=== PATIENT | male | born 1970 | race Caucasian/White ===

== ENCOUNTER 2023-01-27 17:22 | Observation (INO) | payer OTHER ==
[2023-01-27] MEDS ORDERED: SODIUM CHLORIDE 0.9% 1,000 ML IV STA (17:53)
[2023-01-27] MEDS ORDERED: HYDROmorphone 0.5 MG/0.5 ML SYRINGE IVP STA ×2 (18:07→18:52)
[2023-01-27 18:42] LABS: HCT 46.2 % (39.0-53.0); HGB 15.4 gm/dL (13.0-17.5); MCH 29.9 pg (25.0-35.0); MCHC 33.4 g/dL (31.0-37.0); MCV 89.4 fL (80.0-100.0); Mean Platelet Volume 7.8; Platelet Count 307 k/uL (150-450); RBC 5.17 m/uL (4.30-5.90); WBC 8.6 k/uL (3.8-10.6)
[2023-01-27 18:51] LABS: Appearance,Urine Clear (Clear); Bilirubin,Urine Negative (Negative); Blood,Urine Negative (Negative); Color,Urine Light Yellow; Glucose,Urine (UA) Negative (Negative); Ketones,Urine Negative (Negative); Leukocyte Esterase,Urine Negative (Negative); Nitrite,Urine Negative (Negative); Protein,Urine Negative (Negative); Specific Gravity,Urine 1.005 (1.001-1.035); Urobilinogen,Urine <2.0 mg/dL (<2.0)
[2023-01-27 18:51] LABS: ALT 22 U/L (4-49); AST 27 U/L (17-59); African American GFR (CKD) >90 (>60 ml/min/1.73 sqM); Albumin 4.6 g/dL (3.5-5.0); Alkaline Phosphatase 107 U/L (38-126); Anion Gap 9 mmol/L; Blood Urea Nitrogen 7 mg/dL (9-20); Calcium 9.2 mg/dL (8.4-10.2); Carbon Dioxide 26 mmol/L (22-30); Chloride 106 mmol/L (98-107); Glucose 92 mg/dL (74-99); Lipase 42 U/L (23-300); Non-African American GFR(CKD) >90 (>60 ml/min/1.73 sqM); Sodium 141 mmol/L (137-145); Total Bilirubin 0.5 mg/dL (0.2-1.3); Total Protein 7.6 g/dL (6.3-8.2)
[2023-01-27 19:19] LABS: Eosinophils # (M) 0.09 k/uL (0-0.7); Lymphocytes # (M) 3.53 k/uL (1.0-4.8); Monocytes # (M) 0.52 k/uL (0-1.0); Neutrophils # (M) 4.47 k/uL (1.3-7.7); Neutrophils % (M) 52 %; Nucleated Red Blood Cells 0 /100 WBC (0-0); Total Cells Counted 100
[2023-01-27 19:20] LABS: RBC Morphology Normal
--- NOTE | 2023-01-27 19:36 | CT ---
EXAMINATION TYPE: CT abdomen pelvis w con CT DLP: 728.8 mGycm, Automated exposure control for dose reduction was used. DATE OF EXAM: 01/27/2023 7:12 PM COMPARISON: None CLINICAL INDICATION:Male, 52 years old with history of RLQ pain; RLQ pain TECHNIQUE: Standard CT of the abdomen and pelvis following the administration of 100 cc of Isovue 3 00 IV contrast material. Coronal and sagittal reformats were performed. FINDINGS: LOWER CHEST: Bilateral lower lobe subsegmental patchy airspace opacities. ABDOMEN LIVER: Unremarkable GALLBLADDER AND BILE DUCTS: Unremarkable. PANCREAS: Unremarkable. SPLEEN: Unremarkable. ADRENAL GLANDS: Unremarkable. KIDNEYS AND URETERS: No evidence of hydronephrosis. Nonobstructive right renal calculi measuring up t o 2 mm. The kidneys enhance symmetrically. Contrast is demonstrated within both collecting systems on the delayed phase. Subcentimeter right renal hypodense focus which is too small to characterize but likely represents a cyst. PELVIS BLADDER: Unremarkable REPRODUCTIVE: Unremarkable. ABDOMEN & PELVIS STOMACH AND BOWEL: Stomach and duodenum are unremarkable. There is some long segment wall thickening involving the under distended sigmoid colon and rectum. The appendix is within normal limits. No dive rticulosis identified. No evidence of bowel obstruction. PERITONEUM: No evidence of pneumoperitoneum or free fluid. VASCULATURE: Mild atherosclerotic calcifications are present throughout the abdominal aorta and its b ranches. No evidence of aortic aneurysm. MUSCULOSKELETAL: No acute osseous abnormalities LYMPH NODES: No gross evidence for lymphadenopathy. SOFT TISSUE/ABDOMINAL WALL: Unremarkable IMPRESSION: 1. Circumferential wall thickening of the sigmoid colon and rectum which may relate to underdistenti on versus proctocolitis. The appendix is within normal limits. 2. Nonobstructive right renal calculi. 3. Bilateral lower lobe subsegmental airspace opacities which are favored to represent atelectasis ve rsus less likely infiltrates.
[2023-01-27] MEDS ORDERED: NALOXONE 0.4 MG/ML 1 ML VIAL IV PRN (20:52)
[2023-01-27] MEDS ORDERED: ACETAMINOPHEN TAB 325 MG TAB PO PRN (20:53)
[2023-01-27] MEDS: KETOROLAC 15 MG/ML 1 ML VIAL IVP PRN (21:38)
[2023-01-27] MEDS: SODIUM CHLORIDE 0.9% 1,000 ML IV SCH (21:39)
--- NOTE | 2023-01-27 22:03 | ED ---
Abdominal Pain HPI - General Chief Complaint: Abdominal Pain Stated Complaint: abd pain Time Seen by Provider: 01/27/23 17:53 Source: patient Mode of arrival: ambulatory Limitations: no limitations - History of Present Illness Initial Comments: Patient is a 52-year-old male who presents to the emergency department with a chief complaint of abdominal pain. This started yesterday in the right lower abdomen. It radiates into his right side and right back. Patient states today the pain has been significant. He denies fever, chills, nausea, vomiting, diarrhea, constipation, blood in stool, burning urination, trouble urinating, penile discharge, blood in the urine. He denies history of kidney stone. Denies history of abdominal surgery. - Related Data Home Medications Medication Instructions Recorded Confirmed Atorvastatin [Lipitor] 20 mg PO HS 01/27/23 01/27/23 Metoprolol Succinate (ER) [Toprol 25 mg PO HS 01/27/23 01/27/23 Xl] Allergies Allergy/AdvReac Type Severity Reaction Status Date / Time codeine Allergy Rash/Hives Verified 01/27/23 21:06 milk Allergy Unknown Verified 01/27/23 21:07 Review of Systems ROS Statement: Those systems with pertinent positive or pertinent negative responses have been documented in the HPI. ROS Other: All systems not noted in ROS Statement are negative. Past Medical History Past Medical History: Hyperlipidemia, Hypertension History of Any Multi-Drug Resistant Organisms: None Reported Additional Past Surgical History / Comment(s): hemorroid Past Psychological History: No Psychological Hx Reported Smoking Status: Current every day smoker Past Alcohol Use History: None Reported Past Drug Use History: Marijuana General Exam Limitations: no limitations General appearance: alert, in no apparent distress Head exam: Present: atraumatic, normocephalic, normal inspection Eye exam: Present: normal appearance, PERRL, EOMI. Absent: scleral icterus, conjunctival injection, periorbital swelling Respiratory exam: Present: normal lung sounds bilaterally. Absent: respiratory distress, wheezes, rales, rhonchi, stridor Cardiovascular Exam: Present: regular rate, normal rhythm, normal heart sounds. Absent: systolic murmur, diastolic murmur, rubs, gallop, clicks GI/Abdominal exam: Present: soft, tenderness (RLQ moderate ), normal bowel sounds. Absent: distended, guarding, rebound, rigid Back exam: Present: normal inspection. Absent: CVA tenderness (R), CVA tenderness (L), muscle spasm, paraspinal tenderness, vertebral tenderness Psychiatric exam: Present: normal affect, normal mood Skin exam: Present: warm, dry, intact, normal color. Absent: rash Course Vital Signs 01/27/23 01/27/23 17:48 21:40 Temperature 98.3 F Pulse Rate 90 70 Respiratory 20 18 Rate Blood Pressure 164/106 144/98 O2 Sat by Pulse 98 95 Oximetry Medical Decision Making - Medical Decision Making Was pt. sent in by a medical professional or institution (, PA, BOIL OFF WORKER, urgent care, hospital, or [facility]...) When possible be specific @ -No Did you speak to anyone other than the patient for history (EMS, parent, family, police, friend...)? What history was obtained from this source @ -No Did you review nursing and triage notes (agree or disagree)? Why? @ -I reviewed and agree with nursing and triage notes Were old charts reviewed (outside hosp., previous admission, EMS record, old EKG, old radiological studies, urgent care reports/EKG's, [facility] records)? Report findings @ -No old charts were reviewed Differential Diagnosis (chest pain, altered mental status, abdominal pain women, abdominal pain men, vaginal bleeding, weakness, fever, dyspnea, syncope, headache, dizziness, GI bleed, back pain, seizure, CVA, palpatations, mental health)? @ -Differential Abdominal Pain Women: Appendicitis, Cholecystitis, diverticulosis, ischemic bowel, pancreatitis, hepatitis, UTI, gastroenteritis, AAA, incarcerated hernia, bowel obstruction, constipation, inflammatory bowel, hepatitis, peptic ulcer disease, splenic infarction, perforated viscus, vulvitis, ovarian torsion, PID, kidney stone, placenta abruption, this is not meant to be an all-inclusive list EKG interpreted by me (3pts min.). @ -As above X-rays interpreted by me (1pt min.). @ -None done CT interpreted by me (1pt min.). @ -Yes, CT of the abdomen and pelvis with contrast shows circumferential wall thickening of the sigmoid colon and rectum which may relate to under distention versus proctocolitis. The appendix is within normal limits U/S interpreted by me (1pt. min.). @ -None done What testing was considered but not performed or refused? (CT, X-rays, U/S, labs)? Why? @ -None] What meds were considered but not given or refused? Why? @ -[None] Did you discuss the management of the patient with other professionals (professionals i.e. , PA, BOIL OFF WORKER, lab, RT, psych nurse, social media assistant, master printer, teacher, chairman & chief executive officer, continuous pillowcase cutter)? Give summary @ -[No] Was smoking cessation discussed for >3mins.? @ -[No] Was critical care preformed (if so, how long)? @ -[No] Were there social determinants of health that impacted care today? How? (Homelessness, low income, unemployed, alcoholism, drug addiction, transportation, low edu. Level, literacy, decrease access to med. care, half-way, rehab)? @ -[No] Was there de-escalation of care discussed even if they declined (Discuss DNR or withdrawal of care, Hospice)? DNR status @ -[No] What co-morbidities impacted this encounter? (DM, HTN, Smoking, COPD, CAD, Cancer, CVA, ARF, Chemo, Hep., AIDS, mental health diagnosis, sleep apnea, morbid obesity)? @ -[None] Was patient admitted / discharged? Hospital course, mention meds given and route, prescriptions, significant lab abnormalities, going to OR and other pertinent info. @ -Patient presenting with right lower quadrant pain. The abdomen is soft with moderate tenderness in the right lower quadrant. Labs are unremarkable. CT of the abdomen and pelvis with contrast interpreted by myself/radiology showing circumferential wall thickening of the sigmoid colon and rectum possibly reflecting prostocolitis. Patient to female he denies any sexual intercourse with men. Patient continues to have pain despite pain medication he is not comfortable going home. Case discussed with Dr. Ahumada who will keep patient for observation. General surgery is consulted. Undiagnosed new problem with uncertain prognosis? @ -[No] Drug Therapy requiring intensive monitoring for toxicity (Heparin, Nitro, Insulin, Cardizem)? @ -[No] Were any procedures done? @ -[No] Diagnosis/symptom? @ -RLQ abdominal pain Acute, or Chronic, or Acute on Chronic? @ -acute Uncomplicated (without systemic symptoms) or Complicated (systemic symptoms)? @ -uncomplicated Side effects of treatment? @ -[No] Exacerbation, Progression, or Severe Exacerbation? @ -[No] Poses a threat to life or bodily function? How? (Chest pain, [place], [place], pneumonia, PE, COPD, DKA, ARF, appy, cholecystitis, CVA, Diverticulitis, Homicidal, Suicidal, threat to staff... and all critical care pts) @ -No Dr. Kaba is my attending - Lab Data Result diagrams: 01/27/23 18:25 01/27/23 18:25 Lab Results 01/27/23 01/27/23 01/27/23 Range/Units 18:19 18:25 18:25 WBC 8.6 (3.8-10.6) k/uL RBC 5.17 (4.30-5.90) m/uL Hgb 15.4 (13.0-17.5) gm/dL Hct 46.2 (39.0-53.0) % MCV 89.4 (80.0-100.0) fL MCH 29.9 (25.0-35.0) pg MCHC 33.4 (31.0-37.0) g/dL RDW 13.0 (11.5-15.5) % Plt Count 307 (150-450) k/uL MPV 7.8 Neutrophils % Not Reportable Neutrophils % (Manual) 52 % Lymphocytes % Not Reportable Lymphocytes % (Manual) 41 % Monocytes % Not Reportable Monocytes % (Manual) 6 % Eosinophils % Not Reportable Eosinophils % (Manual) 1 % Basophils % Not Reportable Neutrophils # Not Reportable Neutrophils # (Manual) 4.47 (1.3-7.7) k/uL Lymphocytes # Not Reportable Lymphocytes # (Manual) 3.53 (1.0-4.8) k/uL Monocytes # Not Reportable Monocytes # (Manual) 0.52 (0-1.0) k/uL Eosinophils # Not Reportable Eosinophils # (Manual) 0.09 (0-0.7) k/uL Basophils # Not Reportable Nucleated RBCs 0 (0-0) /100 WBC Manual Slide Review Performed RBC Morphology Normal Sodium 141 (137-145) mmol/L Potassium 4.0 (3.5-5.1) mmol/L Chloride 106 (98-107) mmol/L Carbon Dioxide 26 (22-30) mmol/L Anion Gap 9 mmol/L BUN 7 L (9-20) mg/dL Creatinine 0.66 (0.66-1.25) mg/dL Est GFR (CKD-EPI)AfAm >90 (>60 ml/min/1.73 sqM) Est GFR (CKD-EPI)NonAf >90 (>60 ml/min/1.73 sqM) Glucose 92 (74-99) mg/dL Plasma Lactic Acid John (0.7-2.0) mmol/L Calcium 9.2 (8.4-10.2) mg/dL Total Bilirubin 0.5 (0.2-1.3) mg/dL AST 27 (17-59) U/L ALT 22 (4-49) U/L Alkaline Phosphatase 107 (38-126) U/L Total Protein 7.6 (6.3-8.2) g/dL Albumin 4.6 (3.5-5.0) g/dL Lipase 42 (23-300) U/L Urine Color Light Yellow Urine Appearance Clear (Clear) Urine pH 6.0 (5.0-8.0) Ur Specific [place] 1.005 (1.001-1.035) Urine Protein Negative (Negative) Urine Glucose (UA) Negative (Negative) Urine Ketones Negative (Negative) Urine Blood Negative (Negative) Urine Nitrite Negative (Negative) Urine Bilirubin Negative (Negative) Urine Urobilinogen <2.0 (<2.0) mg/dL Ur Leukocyte Esterase Negative (Negative) 01/27/23 Range/Units 18:25 WBC (3.8-10.6) k/uL RBC (4.30-5.90) m/uL Hgb (13.0-17.5) gm/dL Hct (39.0-53.0) % MCV (80.0-100.0) fL MCH (25.0-35.0) pg MCHC (31.0-37.0) g/dL RDW (11.5-15.5) % Plt Count (150-450) k/uL MPV Neutrophils % Neutrophils % (Manual) % Lymphocytes % Lymphocytes % (Manual) % Monocytes % Monocytes % (Manual) % Eosinophils % Eosinophils % (Manual) % Basophils % Neutrophils # Neutrophils # (Manual) (1.3-7.7) k/uL Lymphocytes # Lymphocytes # (Manual) (1.0-4.8) k/uL Monocytes # Monocytes # (Manual) (0-1.0) k/uL Eosinophils # Eosinophils # (Manual) (0-0.7) k/uL Basophils # Nucleated RBCs (0-0) /100 WBC Manual Slide Review RBC Morphology Sodium (137-145) mmol/L Potassium (3.5-5.1) mmol/L Chloride (98-107) mmol/L Carbon Dioxide (22-30) mmol/L Anion Gap mmol/L BUN (9-20) mg/dL Creatinine (0.66-1.25) mg/dL Est GFR (CKD-EPI)AfAm (>60 ml/min/1.73 sqM) Est GFR (CKD-EPI)NonAf (>60 ml/min/1.73 sqM) Glucose (74-99) mg/dL Plasma Lactic Acid John 1.0 (0.7-2.0) mmol/L Calcium (8.4-10.2) mg/dL Total Bilirubin (0.2-1.3) mg/dL AST (17-59) U/L ALT (4-49) U/L Alkaline Phosphatase (38-126) U/L Total Protein (6.3-8.2) g/dL Albumin (3.5-5.0) g/dL Lipase (23-300) U/L Urine Color Urine Appearance (Clear) Urine pH (5.0-8.0) Ur Specific [place] (1.001-1.035) Urine Protein (Negative) Urine Glucose (UA) (Negative) Urine Ketones (Negative) Urine Blood (Negative) Urine Nitrite (Negative) Urine Bilirubin (Negative) Urine Urobilinogen (<2.0) mg/dL Ur Leukocyte Esterase (Negative) Disposition Clinical Impression: RLQ abdominal pain Disposition: ADMITTED IP TO THIS [facility] Condition: Good Referrals: None,Stated [Primary Care Provider] - 1-2 days
[2023-01-28] MEDS ORDERED: HYDROmorphone 0.5 MG/0.5 ML SYRINGE IVP STA (01:26)
[2023-01-28] MEDS: SODIUM CHLORIDE 0.9% 1,000 ML IV SCH ×2 (09:13→23:16)
[2023-01-28] MEDS ORDERED: HYDROmorphone 1 MG/ML 1 ML SYRINGE IVP PRN (09:18)
[2023-01-28] MEDS: PANTOPRAZOLE 40 MG/10 ML VIAL IVP SCH ×2 (10:09→20:50)
[2023-01-28] MEDS ORDERED: METOPROLOL SUCCINATE (ER) 25 MG TAB.ER.24H PO STA (10:48)
--- NOTE | 2023-01-28 14:41 | P.GSCN ---
History of Present Illness Consult date: 01/28/23 History of present illness: CHIEF COMPLAINT: Abdominal pain HISTORY OF PRESENT ILLNESS: This is a 52-year-old male who presented to the hospital with complaints of right lower quadrant abdominal pain that started 3 days ago. Patient reports that he had been dealing with constipation and took Dulcolax with good results. He reports having normal amount of stool. He denies any nausea or vomiting. Denies any fever chills or sweats. He was initially rating his pain a 10 out of 10. Pain has shown some improvement. He had a computed tomography scan of abdomen and pelvis showing wall thickening in the sigmoid colon and rectum. The appendix was normal. Patient has never had a colonoscopy. He reports no blood in his stools. PAST MEDICAL HISTORY: See list. PAST SURGICAL HISTORY: See list. MEDICATIONS: See list. ALLERGIES: See list. SOCIAL HISTORY: No illicit drug use. REVIEW OF SYSTEMS: CONSTITUTIONAL: Denies fever or chills. HEENT: Denies blurred vision, vision changes, or eye pain. Denies hemoptysis ENDOCRINE: Denies heat or cold intolerance. CARDIOVASCULAR: Denies chest pain or pressure. RESPIRATORY: No shortness of breath. GASTROINTESTINAL: Please refer to HPI NEURO: Denies history of seizures. PSYCH: No depression or suicidal ideation HEMATOLOGIC: Denies bleeding disorders. LYMPHATIC: The patient denies any lumps and bumps around the neck. GENITOURINARY: Denies any blood in urine or increased urinary frequency. MUSCULOSKELETAL: Denies myalgias. Denies joint swelling. Denies decreased range of motion beyond patients baseline. SKIN: Denies pruitis. Denies rash. PHYSICAL EXAM: VITAL SIGNS: Reviewed GENERAL: Well-developed in no acute distress. HEENT: No sclera icterus. Extraocular movements grossly intact. Moist buccal mucosa. Head is atraumatic, normocephalic. Hears conversational speech. No nasal drainage. NECK: Supple without lymphadenopathy. CHEST: Non-labored respirations and equal bilateral excursions. CARDIOVASCULAR: Palpable 2+ radial pulses. ABDOMEN: Soft. Nondistended. Tenderness to palpation right lower quadrant MUSCULOSKELETAL: No clubbing or cyanosis. NEUROLOGIC: No focal or lateralizing signs. Cranial nerves II through XII grossly intact. PSYCH: Appropriate affect. Alert and oriented to person, place and time. SKIN: Well perfused. Good skin turgor. LABORATORY DATA: WBC 8.6 Hgb 15.4 platelets 307 Sodium 141 potassium 4.0 creatinine 0.66 Lactic acid 1.0 LFTs normal lipase 42 Urinalysis negative IMAGING: Computed tomography scan abdomen and pelvis circumferential wall thickening of the sigmoid colon and rectum which may relate to under distention versus proctocolitis. The appendix is within normal limits. Nonobstructive right renal calculi. Bilateral lower lobe subsegmental airspace opacities which are favored to represent atelectasis versus less likely infiltrates ASSESSMENT: 1. Right lower quadrant abdominal pain 2. Circumferential wall thickening of the sigmoid colon and rectum noted on computed tomography scan 3. Nonobstructive right renal calculi 4. Hypertension 5. Hyperlipidemia PLAN: -Advance diet to full liquids -Continue to monitor -Continue pain management -Discussed options about possible Robotic appendectomy if patient's symptoms do not show improvement Thank you for this consultation Physician Quality Control Clerk note has been reviewed by physician. Signing provider agrees with the documented findings, assessment, and plan of care. Past Medical History Past Medical History: Hyperlipidemia, Hypertension History of Any Multi-Drug Resistant Organisms: None Reported Additional Past Surgical History / Comment(s): hemorroid Past Psychological History: No Psychological Hx Reported Smoking Status: Current every day smoker Past Alcohol Use History: None Reported Past Drug Use History: Marijuana Medications and Allergies Home Medications Medication Instructions Recorded Confirmed Type Atorvastatin [Lipitor] 20 mg PO HS 01/27/23 01/27/23 History Metoprolol Succinate (ER) [Toprol 25 mg PO HS 01/27/23 01/27/23 History Xl] Allergies Allergy/AdvReac Type Severity Reaction Status Date / Time codeine Allergy Rash/Hives Verified 01/27/23 21:06 milk Allergy Unknown Verified 01/27/23 21:07 Surgical - Exam Vital Signs Temp Pulse Resp BP Pulse Ox 98.3 F 90 20 164/106 98 01/27/23 17:48 01/27/23 17:48 01/27/23 17:48 01/27/23 17:48 01/27/23 17:48 Results - Labs 01/27/23 18:25 01/27/23 18:25 Abnormal Lab Results - Last 24 Hours (Table) 01/27/23 Range/Units 18:25 BUN 7 L (9-20) mg/dL Diabetes panel 01/27/23 Range/Units 18:25 Sodium 141 (137-145) mmol/L Potassium 4.0 (3.5-5.1) mmol/L Chloride 106 (98-107) mmol/L Carbon Dioxide 26 (22-30) mmol/L BUN 7 L (9-20) mg/dL Creatinine 0.66 (0.66-1.25) mg/dL Glucose 92 (74-99) mg/dL Calcium 9.2 (8.4-10.2) mg/dL AST 27 (17-59) U/L ALT 22 (4-49) U/L Alkaline Phosphatase 107 (38-126) U/L Total Protein 7.6 (6.3-8.2) g/dL Albumin 4.6 (3.5-5.0) g/dL Calcium panel 01/27/23 Range/Units 18:25 Calcium 9.2 (8.4-10.2) mg/dL Albumin 4.6 (3.5-5.0) g/dL Pituitary panel 01/27/23 Range/Units 18:25 Sodium 141 (137-145) mmol/L Potassium 4.0 (3.5-5.1) mmol/L Chloride 106 (98-107) mmol/L Carbon Dioxide 26 (22-30) mmol/L BUN 7 L (9-20) mg/dL Creatinine 0.66 (0.66-1.25) mg/dL Glucose 92 (74-99) mg/dL Calcium 9.2 (8.4-10.2) mg/dL Adrenal panel 01/27/23 Range/Units 18:25 Sodium 141 (137-145) mmol/L Potassium 4.0 (3.5-5.1) mmol/L Chloride 106 (98-107) mmol/L Carbon Dioxide 26 (22-30) mmol/L BUN 7 L (9-20) mg/dL Creatinine 0.66 (0.66-1.25) mg/dL Glucose 92 (74-99) mg/dL Calcium 9.2 (8.4-10.2) mg/dL Total Bilirubin 0.5 (0.2-1.3) mg/dL AST 27 (17-59) U/L ALT 22 (4-49) U/L Alkaline Phosphatase 107 (38-126) U/L Total Protein 7.6 (6.3-8.2) g/dL Albumin 4.6 (3.5-5.0) g/dL
--- NOTE | 2023-01-28 15:41 | P.HPIM ---
History of Present Illness H&P Date: 01/28/23 This is a pleasant 52-year-old male who presented to the emergency department with right lower quadrant pain that he reports started Wednesday into Wednesday and the pain persisted and was radiating around. Patient denies any nausea or vomiting, black or tarry stools, difficulty in urination or pain with urination. Patient reports he did travel down to [place] where he originates from for the and denies any sick contacts or changes in foods. Patient reports he did eat seafood which is not new for him and has no ALLERGIES to this. Patient does not currently have a primary care provider and reports he has a past medical history of high cholesterol and high blood pressure and continues to use tobacco. Patient occasionally uses marijuana and denies any alcohol use. Patient reports he goes to urgent care in [place] for medication refills. Labs reviewed from emergency department and urinalysis was negative, BMP within normal limits lactic acid was 1, lipase is 42, CBC within normal limits. Vital signs relatively stable other than mildly hypertensive and had not had medications in [address] abdomen and pelvis done in the emergency department that showed circumferential wall thickening of the sigmoid colon and rectum which may relate to underdistention versus proctocolitis and the appendix appeared within normal limits, a nonobstructive right renal calculi, and bilateral lower lobes subsegmental airspace opacification is which are favored to represent atelectasis versus less likely infiltrates. Patient was admitted under observation with surgical consult for abdominal pain and started on IV hydration and made nothing by mouth. Review Of Systems: Constitutional: No fever, no chills, no night sweats. No weight change. No weakness, fatigue or lethargy. No daytime sleepiness. EENT: No headache. No blurred vision or double vision, no loss of vision. No loss of Hearing, no ringing in the ears, no dizziness. No nasal drainage or congestion. No epistaxis. No sore throat. Lungs: No shortness of breath, cough, no sputum production. No wheezing. Cardiovascular: No chest pain, no lower extremity edema. No palpitations. No paroxysmal nocturnal dyspnea. No orthopnea. No lightheadedness or dizziness. No syncopal episodes. Abdominal: Reports right lower quadrant abdominal pain. No nausea, vomiting. No diarrhea. No constipation. No bloody or tarry stools.. Reports loss of appetite. Genitourinary: No dysuria, increased frequency, urgency. No urinary retention. Musculoskeletal: No myalgias. No muscle weakness, no gait dysfunction, no frequent falls. No back pain. No neck pain. Integumentary: No wounds, no lesions. No rash or pruritus. No unusual bruising. No change in hair or nails. Neurologic: No aphasia. No facial droop. No change in mentation. No head injury. No headache. No paralysis. No paresthesia. Psychiatric: No depression. No anxiety. No mood swings. Endocrine: No abnormal blood sugars. No weight change. No excessive sweating or thirst. No cold intolerance. PHYSICAL EXAMINATION: GENERAL: The patient is alert and oriented x4, Well developed, well nourished. Thin built HEENT: Pupils are round and equally reacting to light. EOMI. no scleral icterus. No conjunctival pallor. Normocephalic, atraumatic. No pharyngeal erythema. No thyromegaly. CARDIOVASCULAR: S1 and S2 muffled PULMONARY: diminished breath sounds bilaterally with no wheezing or rhonchi noted. ABDOMEN: soft. Extremely tender of the right lower quadrant with palpation on exam. non-distended, normoactive bowel sounds. No palpable organomegaly. MUSCULOSKELETAL: No joint swelling or deformity. EXTREMITIES: No cyanosis, clubbing, or pedal edema. NEUROLOGICAL: Gross neurological examination did not reveal any focal deficits. SKIN: No rashes. Assessment: Abdominal pain, right lower quadrant with concerns of possible proctocolitis Circumferential wall thickening of the sigmoid colon and rectum as noted on CT Right side nonobstructive renal calculi History of hypertension History of hyperlipidemia Continued ongoing nicotine dependence Occasional THC use GI prophylaxis DVT prophylaxis Full code Plan: Recommend to continue with current medications and management and general surgery had been consulted from the ER Patient was nothing by mouth and evaluated by general surgery recommending full liquid diet as patient is reporting hunger Concerns for wall thickening of the sigmoid colon and rectum with concerns of proctocolitis versus distention. Patient reports will occasionally have constipation and uses laxatives for relief Home medications reviewed and resumed Will add empiric antibiotics in the form of ceftriaxone and Flagyl and patient is scheduled tentatively to undergo laparoscopic evaluation with possible robotic appendectomy and will be nothing by mouth at midnight Recommend follow-up labs Given patient's continued symptoms and severity of 10/10 pain, patient will require more than 2 night hospitalization. Will await surgical report. The impression and plan of care has been dictated by Leticia Valencia, nurse practitioner as directed. Dr. Yann MD I have performed a history and examination and MDM of this patient, discussed the same with the dictator, and agree with the dictator's assessment and plan as written ,documented as a scribe. Based on total visit time, I have performed more than 50% of the visit. Any additional findings or plans will be noted. Past Medical History Past Medical History: Hyperlipidemia, Hypertension History of Any Multi-Drug Resistant Organisms: None Reported Additional Past Surgical History / Comment(s): hemorroid Past Psychological History: No Psychological Hx Reported Smoking Status: Current every day smoker Past Alcohol Use History: None Reported Past Drug Use History: Marijuana Medications and Allergies Home Medications Medication Instructions Recorded Confirmed Type Atorvastatin [Lipitor] 20 mg PO HS 01/27/23 01/27/23 History Metoprolol Succinate (ER) [Toprol 25 mg PO HS 01/27/23 01/27/23 History Xl] Allergies Allergy/AdvReac Type Severity Reaction Status Date / Time codeine Allergy Rash/Hives Verified 01/27/23 21:06 milk Allergy Unknown Verified 01/27/23 21:07 Physical Exam Vitals: Vital Signs Temp Pulse Pulse Resp BP BP Pulse Ox 01/28/23 07:00 97.9 F 60 18 143/83 96 01/28/23 00:56 97.8 F 66 14 167/91 98 01/27/23 21:40 70 18 144/98 95 01/27/23 17:48 98.3 F 90 20 164/106 98 Intake and Output 01/27/23 01/28/23 01/28/23 22:59 06:59 14:59 Output Total 0 Balance 0 Output: Urine 0 Other: # Voids 1 Weight 63.503 kg 63.503 kg Results CBC & Chem 7: 01/27/23 18:25 01/27/23 18:25 Labs: Abnormal Lab Results - Last 24 Hours (Table) 01/27/23 Range/Units 18:25 BUN 7 L (9-20) mg/dL Thrombosis Risk Factor Assmnt - DVT/VTE Prophylaxis DVT/VTE Prophylaxis: Mechanical Prophylaxis ordered - Choose All That Apply Any of the Below Risk Factors Present?: Yes Each Factor Represents 1 point: Age 41-60 years Other Risk Factors: No Other congenital or acquired thrombophilia - If yes, enter type in comment: No Thrombosis Risk Factor Assessment Total Risk Factor Score: 1 Thrombosis Risk Factor Assessment Level: Low Risk Assessment and Plan Time with Patient: Greater than 30
[2023-01-28] MEDS: metroNIDAZOLE-NS PMX 500 MG in SALINE 1 100ML.BAG IVPB SCH ×2 (16:21→23:14)
[2023-01-28] MEDS ORDERED: ONDANSETRON 4 MG/2 ML VIAL IVP PRN (17:05)
[2023-01-28] MEDS: KETOROLAC 15 MG/ML 1 ML VIAL IVP PRN ×2 (17:13→23:14)
[2023-01-28] MEDS: ATORVASTATIN 20 MG TAB PO SCH (20:50)
[2023-01-28] MEDS: METOPROLOL SUCCINATE (ER) 25 MG TAB.ER.24H PO SCH (20:50)
[2023-01-29] MEDS: KETOROLAC 15 MG/ML 1 ML VIAL IVP PRN (06:24)
[2023-01-29] MEDS: PANTOPRAZOLE 40 MG/10 ML VIAL IVP SCH ×2 (09:22→20:36)
[2023-01-29] MEDS: metroNIDAZOLE-NS PMX 500 MG in SALINE 1 100ML.BAG IVPB SCH ×2 (09:54→17:04)
[2023-01-29] MEDS ORDERED: ACETAMINOPHEN IV (For NPO) 1,000 MG in EMPTY BAG 1 BAG IVPB SCH (11:00)
[2023-01-29] MEDS: TAMSULOSIN 0.4 MG CAP.ER.24H PO SCH (11:09)
[2023-01-29 11:10] LABS: Basophils # (A) 0.07 X 10*3/uL (0.00-0.10); Basophils % (A) 0.8 %; Eosinophils # (A) 0.38 X 10*3/uL (0.04-0.35); Eosinophils % (A) 4.3 %; HCT 38.6 % (39.6-50.0); HGB 12.7 g/dL (13.0-17.0); Immature Grans, Automated 0.5 %; Lymphocytes # (A) 2.76 X 10*3/uL (0.90-5.00); Lymphocytes % (A) 31.4 %; MCH 29.7 pg (27.0-32.0); MCHC 32.9 g/dL (32.0-37.0); MCV 90.2 fL (80.0-97.0); Mean Platelet Volume 10.4 fL (9.5-12.2); Monocytes # (A) 0.74 X 10*3/uL (0.20-1.00); Monocytes % (A) 8.4 %; NRBC Per 100 WBC 0 /100 WBCS (0.0-0.0); Neutrophils % (A) 54.6 %; Platelet Count 276 X 10*3/uL (140-440); RBC 4.28 X 10*6/uL (4.40-5.60); RDW 12.9 % (11.5-14.5); WBC 8.79 X 10*3/uL (4.50-10.00)
[2023-01-29 11:33] LABS: Magnesium 1.9 mg/dL (1.5-2.4)
[2023-01-29 11:34] LABS: Anion Gap 9.1 mmol/L (10.00-18.00); BUN/Creat Ratio 8.73 Ratio (12.00-20.00); Blood Urea Nitrogen 6.6 mg/dL (9.0-27.0); Calcium 8.7 mg/dL (8.7-10.3); Carbon Dioxide 23.7 mmol/L (20.0-27.5); Non-African American GFR(CKD) 105.3 (60.0-200.0); Potassium 3.9 mmol/L (3.5-5.5)
[2023-01-29] MEDS: KETOROLAC 15 MG/ML 1 ML VIAL IVP SCH ×2 (13:23→19:37)
[2023-01-29] MEDS: SODIUM CHLORIDE 0.9% 1,000 ML IV SCH (13:23)
--- NOTE | 2023-01-29 14:04 | P.PN ---
Subjective Progress Note Date: 01/29/23 CHIEF COMPLAINT: abdominal pain HISTORY OF PRESENT ILLNESS: Patient presented with right lower quadrant a bdominal pain for the past 3-4 days. Patient reports that the pain has changed and now radiates across the lower abdomen. He reports that he feels inflamed. Initially there was concerns about possible urinary retention. He was bladder scanned and is not retaining any urine. He does admit to some intermittent nausea. Last bowel movement was 2 days ago. He is having flatus. Afebrile. WBC 8.79 Hgb 12.7 platelets 276 sodium is 141 potassium 3.9 creatinine 0.8. Patient initially scheduled for surgery today for evaluation of that right lower quadrant abdominal pain. Surgery has now been canceled. Abdominal pain is likely secondary to kidney stone PHYSICAL EXAM: VITAL SIGNS: Reviewed GENERAL: Well-developed in no acute distress. HEENT: No sclera icterus. Extraocular movements grossly intact. Moist buccal mucosa. Head is atraumatic, normocephalic. Hears conversational speech. No nasal drainage. NECK: Supple without lymphadenopathy. CHEST: Non-labored respirations and equal bilateral excursions. CARDIOVASCULAR: Palpable 2+ radial pulses. ABDOMEN: Soft. Nondistended. tenderness with palpation across the lower abdomen MUSCULOSKELETAL: No clubbing or cyanosis. NEUROLOGIC: No focal or lateralizing signs. Cranial nerves II through XII grossly intact. PSYCH: Appropriate affect. Alert and oriented to person, place and time. SKIN: Well perfused. Good skin turgor. ASSESSMENT: 1. Abdominal pain possibly secondary to kidney stone 2. Circumferential wall thickening of the sigmoid colon and rectum noted on computed tomography scan 3. Nonobstructive right renal calculi 4. Hypertension 5. Hyperlipidemia PLAN: -No surgical intervention planned. The tentative surgery for today has been canceled. Patient's abdominal pain is likely related to kidney stone -Add Flomax -Add scheduled Toradol every 6 hours -Resume regular diet -Continue to monitor Physician [employer] note has been reviewed by physician. Signing provider agrees with the documented findings, assessment, and plan of care. Objective - Vital Signs Vital signs: Vital Signs Temp 98.4 F 01/29/23 07:00 Pulse 60 01/29/23 07:00 Resp 18 01/29/23 07:00 BP 139/78 01/29/23 07:00 Pulse Ox 95 01/29/23 07:00 FiO2 Intake & Output 01/28/23 01/29/23 01/29/23 18:59 06:59 18:59 Intake Total 1050 Output Total 0 Balance 1050 Intake: Intake, IV Titration 600 Amount Sodium Chloride 0.9% 1, 600 000 ml @ 75 mls/hr IV . [id number] [facility] Rx#:[id number] Oral 450 Output: Urine 0 Other: # Voids 1 3 - Labs CBC & Chem 7: 01/29/23 06:46 01/29/23 06:46
--- NOTE | 2023-01-29 16:00 | P.PN ---
Subjective Progress Note Date: 01/29/23 This is a pleasant 52-year-old male who presented to the emergency department with right lower quadrant pain that he reports started Wednesday into Wednesday and the pain persisted and was radiating around. Patient denies any nausea or vomiting, black or tarry stools, difficulty in urination or pain with urination. Patient reports he did travel down to [place] where he originates from for the and denies any sick contacts or changes in foods. Patient reports he did eat seafood which is not new for him and has no ALLERGIES to this. Patient does not currently have a primary care provider and reports he has a past medical history of high cholesterol and high blood pressure and con tinues to use tobacco. Patient occasionally uses marijuana and denies any alcohol use. Patient reports he goes to urgent care in [place] for medication refills. Labs reviewed from emergency department and urinalysis was negative, BMP within normal limits lactic acid was 1, lipase is 42, CBC within normal limits. Vital signs relatively stable other than mildly hypertensive and had not had medications in [address] abdomen and pelvis done in the emergency department that showed circumferential wall thickening of the sigmoid colon and rectum which may relate to underdistention versus proctocolitis and the appendix appeared within normal limits, a nonobstructive right renal calcu li, and bilateral lower lobes subsegmental airspace opacification is which are favored to represent atelectasis versus less likely infiltrates. Patient was admitted under observation with surgical consult for abdominal pain and started on IV hydration and made nothing by mouth. 01/29/2023 Patient seen and evaluated in follow-up today with general surgery following. Patient has been maintained on pain medications along with ceftriaxone and Flagyl as patient was having some right lower quadrant pain. Exploratory laparoscopy has been canceled as surgeon feels now that his pain is radiating to the right and left lower quadrants that is more related to a possible kidney stone. CT abdomen initially in the ER did show a nonobstructive right renal calculi that is measuring up to 2 mm and there is a subcentimeter right renal hypodense focus which is too small to characterize but likely representing a cyst. Diet is being resumed and advanced as tolerated per surgery and will be monitored for improvement in abdominal pain. Toradol is being scheduled as opposed as needed. Patient reports he is having severe pain in the right and left lower quadrants making it difficult for him to get up out of the bed. Flomax also being added. Patient denies any urinary retention or difficulty wit h urination or pain with urination. Patient is afebrile with no reports of chest pain or palpitations noted. Patient occasionally gets nausea and denies any vomiting. Will follow up on repeat labs Review of systems: Constitutional: No reports of fatigue, fever, or chills Cardiovascular: No reports of chest pain or palpitations Respiratory: No reports of shortness of breath or cough GI: reports of occasional nausea, no vomiting, or diarrhea, reports right and lower quadrant abdominal pain diffuse : No reports of dysuria or retention Neurovascular: No reports of weakness or numbness All medications have been reviewed PHYSICAL EXAMINATION: GENERAL: The patient is alert and oriented x4, Well developed, well nourished. Thin built HEENT: Pupils are round and equally reacting to light. EOMI. no scleral icterus. No conjunctival pallor. Normocephalic, atraumatic. No pharyngeal erythema. No thyromegaly. CARDIOVASCULAR: S1 and S2 muffled PULMONARY: diminished breath sounds bilaterally with no wheezing or rhonchi noted. ABDOMEN: soft. Extremely tender of the right and left lower quadrant with palpation on exam. non-distended, normoactive bowel sounds. No palpable organomegaly. MUSCULOSKELETAL: No joint swelling or deformity. EXTREMITIES: No cyanosis, clubbing, or pedal edema. NEUROLOGICAL: Gross neurological examination did not reveal any focal deficits. SKIN: No rashes. Assessment: Abdominal pain, right lower quadrant with concerns of possible proctocolitis, a lthough suspicion is low and surgery evaluated reporting pain is possibly due to kidney stone Circumferential wall thickening of the sigmoid colon and rectum as noted on CT Right side nonobstructive renal calculi, measuring up to 2 mm History of hypertension History of hyperlipidemia Continued ongoing nicotine dependence Occasional THC use GI prophylaxis DVT prophylaxis Full code Plan: Recommend to continue with current medications and management and general surgery following. Initially plans for exploratory laparoscopy although this has been canceled as surgeon feels now that his pain is diffuse and traveling from the right to left quadrant feels is more of pain related to kidney stone r ecommending advancing diet as tolerated and continue with scheduled Toradol with no plans for surgical intervention Home medications reviewed and resumed Will continue empiric antibiotics in the form of ceftriaxone and Flagyl for now Recommend follow-up labs Will discuss further with surgery and monitor for improvement in abdominal pain with possible discharge in the next 24-48 hours The impression and plan of care has been dictated by Leticia Valencia, nurse practitioner as directed. Dr. Yann MD I have performed a history and examination and MDM of this patient, discussed th e same with the dictator, and agree with the dictator's assessment and plan as written ,documented as a scribe. Based on total visit time, I have performed more than 50% of the visit. Any additional findings or plans will be noted. Objective - Vital Signs Vital signs: Vital Signs Temp 98.4 F 01/29/23 07:00 Pulse 60 01/29/23 07:00 Resp 18 01/29/23 07:00 BP 139/78 01/29/23 07:00 Pulse Ox 95 01/29/23 07:00 FiO2 Intake & Output 01/28/23 01/29/23 01/29/23 18:59 06:59 18:59 Intake Total 1050 Output Total 0 Balance 1050 Intake: Intake, IV Titration 600 Amount Sodium Chloride 0.9% 1, 600 000 ml @ 75 mls/hr IV . [id number] [facility] Rx#:[id number] Oral 450 Output: Urine 0 Other: # Voids 1 3 - Labs CBC & Chem 7: 01/29/23 06:46 01/29/23 06:46
[2023-01-29] MEDS: ATORVASTATIN 20 MG TAB PO SCH (20:36)
[2023-01-29] MEDS: METOPROLOL SUCCINATE (ER) 25 MG TAB.ER.24H PO SCH (20:36)
[2023-01-30] MEDS: KETOROLAC 15 MG/ML 1 ML VIAL IVP SCH ×2 (00:27→06:01)
[2023-01-30] MEDS: metroNIDAZOLE-NS PMX 500 MG in SALINE 1 100ML.BAG IVPB SCH ×2 (00:27→09:23)
[2023-01-30] MEDS: SODIUM CHLORIDE 0.9% 1,000 ML IV SCH (00:31)
[2023-01-30 08:20] VITALS: BP 120/80; PULSE 70; RESP 16; TEMP 98.1
[2023-01-30] MEDS: PANTOPRAZOLE 40 MG/10 ML VIAL IVP SCH (08:46)
[2023-01-30] MEDS: TAMSULOSIN 0.4 MG CAP.ER.24H PO SCH (08:46)
[2023-01-30 08:58] LABS: HCT 40.3 % (39.0-53.0); HGB 13.4 gm/dL (13.0-17.5); MCHC 33.2 g/dL (31.0-37.0); MCV 90.6 fL (80.0-100.0); Mean Platelet Volume 7.8; Platelet Count 296 k/uL (150-450); RBC 4.45 m/uL (4.30-5.90); RDW 12.9 % (11.5-15.5); WBC 13.9 k/uL (3.8-10.6)
[2023-01-30 09:07] LABS: African American GFR (CKD) >90 (>60 ml/min/1.73 sqM); Anion Gap 8 mmol/L; Blood Urea Nitrogen 6 mg/dL (9-20); Calcium 8.6 mg/dL (8.4-10.2); Carbon Dioxide 25 mmol/L (22-30); Chloride 107 mmol/L (98-107); Glucose 123 mg/dL (74-99); Magnesium 1.9 mg/dL (1.6-2.3); Non-African American GFR(CKD) >90 (>60 ml/min/1.73 sqM); Potassium 4.1 mmol/L (3.5-5.1); Sodium 140 mmol/L (137-145)
[2023-01-30 09:47] LABS: Eosinophils # (M) 0.42 k/uL (0-0.7); Monocytes # (M) 0.83 k/uL (0-1.0); Neutrophils # (M) 10.15 k/uL (1.3-7.7); Neutrophils % (M) 73 %; Nucleated Red Blood Cells 0 /100 WBC (0-0); Total Cells Counted 100
--- NOTE | 2023-01-30 13:22 | P.DS ---
Providers Date of admission: 01/27/23 23:30 Attending physician: Pineda Chilel Consults: 01/27/23 20:52 Consult Physician Routine Consulting Provider: Lyric Santoyo Consult Reason/Comments: RLQ pain Do you want consulting provider notified?: Yes Primary care physician: Stated None Hospital Course: Patient came in with right lower quadrant abdominal pain does have colitis patient also has right-sided kidney stone which is around 2 mm. Patient was treated for colitis with antibiotics that is metronidazole and ceftriaxone patient will be discharged on Ceftin and metronidazole symptoms improved al though patient white count did go up to my minimally. Patient will follow-up with PCP as an outpatient where he needs a repeat CBC. Patient overall symptomatically better patient will be on a softer diet at home. PHYSICAL EXAMINATION: GENERAL: The patient is alert and oriented x3, not in any acute distress. Well developed, well nourished. HEENT: Pupils are round and equally reacting to light. EOMI. No scleral icterus. No conjunctival pallor. Normocephalic, atraumatic. No pharyngeal erythema. No thyromegaly. CARDIOVASCULAR: S1 and S2 present. No murmurs, rubs, or gallops. PULMONARY: Chest is clear to auscultation, no wheezing or crackles. ABDOMEN: Soft, nontender, nondistended, normoactive bowel sounds. No palpable organomegaly. MUSCULOSKELETAL: No joint swelling or deformity. EXTREMITIES: No cyanosis, clubbing, or pedal edema. NEUROLOGICAL: Gross neurological examination did not reveal any focal deficits. SKIN: No rashes. -Abdominal pain most probably secondary to colitis 5 more days of antibiotics, Ceftin find it twice a day and metronidazole 503 times a day -Nonobstructive renal Calculi about 2 mm probably not contributing to his pain and-hypertension -Hyperlipidemia -Nicotine and THC dependence: Counseling was provided Patient Condition at Discharge: Good Plan - Discharge Summary New Discharge Prescriptions: New cefUROXime axetiL [Ceftin] 500 mg PO BID 4 Days #10 tab metroNIDAZOLE [Flagyl] 500 mg PO TID #15 tab Continue Atorvastatin [Lipitor] 20 mg PO HS #30 tab Discontinued Metoprolol Succinate (ER) [Toprol Xl] 25 mg PO HS Discharge Medication List Atorvastatin [Lipitor] 20 mg PO HS #30 tab 01/30/23 [Rx] cefUROXime axetiL [Ceftin] 500 mg PO BID 4 Days #10 tab 01/30/23 [Rx] metroNIDAZOLE [Flagyl] 500 mg PO TID #15 tab 01/30/23 [Rx] Follow up Appointment(s)/Referral(s): Sury Gallo [REFERRING] - 1 Week Patient Instructions/Handouts: Acute Abdominal Pain (DC) Discharge/Stand Alone Forms: Area PCPs Discharge Disposition: HOME SELF-CARE
== END 2023-01-30 11:20 | disposition home or self-care (01) ==
LOC: EC 17:22 → 6NMEDSUR 20:52 → INTOOBSV 23:30 → OBSVTOIN 23:30 → 6NMEDSUR 01-28 00:10
PROVIDERS: ADMIT Hospitalist; ATTEND Hospitalist
DX: K52.9 Noninfective gastroenteritis and colitis, unspecified (principal); N20.0 Calculus of kidney; I70.0 Atherosclerosis of aorta; I10 Essential (primary) hypertension; E78.00 Pure hypercholesterolemia, unspecified; F12.90 Cannabis use, unspecified, uncomplicated; F17.200 Nicotine dependence, unspecified, uncomplicated; Z88.5 Allergy status to narcotic agent; Z79.899 Other long term (current) drug therapy
CPT/HCPCS: 96376 ×4; 96361 ×3; 96366 ×3; 96367; 96375 ×2; 96365; 99285; 36415; 80053; 80048 ×2; 83605; 83690; 83735 ×2; 85025 ×3; 81003; 74177; G0378 ×4; J2405; J0696 ×3; J1170 ×3; J0131; J1885 ×4; C9113 ×3; Q9967; 96374

== ENCOUNTER 2023-07-28 10:04 | Day surgery (SDC) | payer OTHER ==
[2023-07-26 13:59] VITALS: BMI 25.0
[~2023-07-28 10:04] MED LIST: LACTATED RINGERS 1,000 ML IV SCH; LIDOCAINE 1% (10MG/ML) FOR IV START INTRADERMA PRN
[2023-07-28] MEDS ORDERED: LACTATED RINGERS 1,000 ML IV ONE (11:02)
[2023-07-28 11:06] VITALS: TEMP 98
[2023-07-28] MEDS ORDERED: PROPOFOL 10 MG/ML 20 ML VIAL IV ONE (12:08)
[2023-07-28] MEDS ORDERED: LIDOCAINE 1% INJ 10MG/ML (20 ML MDV) ONE (12:08)
--- NOTE | 2023-07-28 12:23 | P.PCN ---
Date of Procedure: 07/28/23 Procedure(s) Performed: BRIEF HISTORY: Patient is a 52-year-old pleasant white male scheduled for an elective colonoscopy as a part of screening for colon cancer. PROCEDURE PERFORMED: Colonoscopy with snare polypectomy.. PREOPERATIVE DIAGNOSIS: Screening for colon cancer. IV sedation per Anesthesia. PROCEDURE: After informed consent was obtained, the patient, was brought into the endoscopy unit. IV sedation was administered by Anesthesia under continuous monitoring. Digital rectal examination was normal. Initially the Olympus CF-160 flexible video colonoscope was then inserted in the rectum, gradually advanced into the cecum without any difficulty. Careful examination was performed as the scope was gradually being withdrawn. Ileocecal valve and the appendiceal orifice were visualized and appeared normal. Prep was excellent. Mucosa of the cecum, appeared normal. In the ascending colon there was a 7 mm flat polyp removed by cold snare polypectomy. In the hepatic flexure there was a 3 mm and 5 mm polyps removed by cold snare polypectomy. Rest of the ascending colon, transverse colon, descending colon, sigmoid colon, and rectum appeared normal. In the proximal rectum there was a 3 mm polyp removed by cold snare polypectomy. Retroflexion was performed in the rectum and no lesions were seen. The patient tolerated the procedure well. IMPRESSION: 7 mm flat colon polyp status post polypectomy. 3 mm and 5 mm hepatic flexure polyp status post polypectomy. 3 mm rectal polyp status post polypectomy. RECOMMENDATIONS: Findings of this examination were discussed with the patient as well as his family. He was advised to follow with the biopsy results. If the biopsy reveals adenoma he can have a repeat colonoscopy in 5 years..
[2023-07-28 13:10] VITALS: BP 132/84; PULSE 58; RESP 13
== END 2023-07-28 12:57 | disposition home or self-care (01) ==
LOC: ORWHC2ENDO 10:04
PROVIDERS: ATTEND Internal Medicine Gastroenterology
DX: Z12.11 Encounter for screening for malignant neoplasm of colon (principal); D12.2 Benign neoplasm of ascending colon; D12.3 Benign neoplasm of transverse colon; I10 Essential (primary) hypertension; E78.5 Hyperlipidemia, unspecified; F17.210 Nicotine dependence, cigarettes, uncomplicated; F12.90 Cannabis use, unspecified, uncomplicated; Z91.011 Allergy to milk products; Z88.5 Allergy status to narcotic agent; Z79.899 Other long term (current) drug therapy
CPT/HCPCS: 88305; 45385; J2001; J2704